=== PATIENT | male | born 1945 | race Caucasian/White ===

== ENCOUNTER → 2023-10-20 08:26 | Outpatient (BNVA) | payer MEDICARE, SELFPAY | PROVIDERS: PCP Nurse Practitioner Family; Visit Provider Nurse Practitioner Family | DX: I10 Essential (primary) hypertension (principal); E53.8 Deficiency of other specified B group vitamins; E78.2 Mixed hyperlipidemia; E11.9 Type 2 diabetes mellitus without complications; Z79.4 Long term (current) use of insulin; E55.9 Vitamin D deficiency, unspecified; Z79.899 Other long term (current) drug therapy | CPT/HCPCS: 80053; 80061; 82043; 82306; 82607; 83036; 85025 ==

== ENCOUNTER 2024-04-12 14:31 | Outpatient (CLI) | payer MEDICARE, SELFPAY ==
[2024-04-12 15:38] LABS: Estmated Average Glucose 163; Hemoglobin A1C 7.3 % (4.0-6.0)
--- NOTE | 2024-04-12 15:45 | USCV_ITS ---
Zane Euceda Age: 78 Gender: M : 1945 Exam Date: 04/12/2024 14:45 Ordering Phys: Alexei Weaver DO Technologist: Exam Location: [facility] – [place] Indication: sob cp BP: 130 / 70 HR: 68 Rhythm: Sinus Technical Quality: Adequate MEASUREMENTS (Male / Female) Normal Values 2D ECHO LV Diastolic Diameter PLAX 4.3 cm 4.2 - 5.9 / 3.9 - 5.3 cm IVS Diastolic Thickness 1.0 cm 0.6 - 1.0 / 0.6 - 0.9 cm IVS Systolic Thickness 1.2 cm LVPW Diastolic Thickness 1.2 cm 0.6 - 1.0 / 0.6 - 0.9 cm LVPW Systolic Thickness 1.2 cm LVOT Diameter 2.1 cm LV Ejection Fraction 2D Teich 66.9 % LV Ejection Fraction MOD 4C 56.8 % LV Ejection Fraction MOD 2C 63.4 % LV Ejection Fraction 2C AL 64.6 % LA Diameter 3.5 cm RA Systolic Volume 4C AL 35.6 ml RA Systolic Volume 4C MOD 32.6 ml Aorta at Sinotubular Diameter 2.6 cm IVC Diameter 2.3 cm M-MODE LA Ao Ratio MM 1.5 AV Cusp Separation MM 2.7 cm DOPPLER AV Peak Velocity 106.7 cm/s LVOT Peak Velocity 111.0 cm/s AV Area Cont Eq vti 3.6 cm squared AV Area Cont Eq pk 3.6 cm squared MV Peak Velocity 100.0 cm/s TV Peak Velocity 124.5 cm/s TR Peak Velocity 130.0 cm/s TR Peak Gradient 6.8 mmHg TV Peak E Velocity 85.0 cm/s Right Atrial Pressure 3.0 mmHg Pulmonary Artery Systolic Pressu 9.8 mmHg PV Peak Velocity 130.0 cm/s FINDINGS Left Ventricle Left ventricle is normal in size. LV systolic function is normal with EF 55 to 60%. No regional wall motion abnormalities are seen Right Ventricle Normal in size and function Right Atrium Normal in size Left Atrium Normal in size Mitral Valve Structurally normal mitral valve. Mild mitral regurgitation. Aortic Valve Structurally normal aortic valve. No significant stenosis or regurgitation. Tricuspid Valve Mild tricuspid regurgitation. Insufficient TR jet to calculate RVSP. Pulmonic Valve Mild pulmonic regurgitation Pericardium Normal Aorta Normal in size IVC Not well visualized CONCLUSIONS LV systolic function is nromal with EF of 55-60% Mild mitral regurgitation Mild tricuspid regurgitation Mild pulmonic regurgitation. No comparison studies are available. Gerardo Villarreal MD (Electronically Signed) Final Date: 16 April 2024 13:29 S
== END 2024-04-12 14:32 | disposition home or self-care (01) ==
LOC: RAD 14:33
PROVIDERS: PCP Nurse Practitioner Family; Visit Provider Family Medicine
DX: R01.2 Other cardiac sounds; E11.9 Type 2 diabetes mellitus without complications; Z79.4 Long term (current) use of insulin; I45.10 Unspecified right bundle-branch block
CPT/HCPCS: 83036; 93005; 93306

== ENCOUNTER → 2024-05-18 08:07 | Outpatient (BNVA) | payer MEDICARE, SELFPAY | PROVIDERS: PCP Family Medicine; Visit Provider Family Medicine | DX: R01.2 Other cardiac sounds (principal); I10 Essential (primary) hypertension; R06.00 Dyspnea, unspecified; R55 Syncope and collapse | CPT/HCPCS: 80053; 83880; 84439; 84443; 85025 ==

== ENCOUNTER → 2025-04-06 08:48 | Outpatient (BNVA) | payer MEDICARE, SELFPAY | PROVIDERS: PCP Family Medicine; Visit Provider Family Medicine | DX: E55.9 Vitamin D deficiency, unspecified (principal); I10 Essential (primary) hypertension; E11.9 Type 2 diabetes mellitus without complications; Z79.4 Long term (current) use of insulin; E78.2 Mixed hyperlipidemia; Z12.5 Encounter for screening for malignant neoplasm of prostate; R06.00 Dyspnea, unspecified; R79.89 Other specified abnormal findings of blood chemistry | CPT/HCPCS: 80053; 80061; 82043; 82306; 82607; 83036; 84443; 85025; G0103 ==